=== PATIENT | male | born 1995 | race African-American/Black ===

== ENCOUNTER 2020-09-06 05:07 | Emergency (ER) | payer SELFPAY ==
[~2020-09-06] VITALS: Ht 172.7 cm; Wt 85.7 kg
[2020-09-06] MEDS ORDERED: CEFTRIAXONE SOD 1 GM VIAL IM ONE (05:30)
[2020-09-06] MEDS ORDERED: CEFTRIAXONE SOD 1 GM VIAL ONE (05:37)
[2020-09-06 05:53] VITALS: BP 125/59
== END 2020-09-06 05:53 | disposition home or self-care (01) ==
LOC: FSED 05:27
DX: L03.317 Cellulitis of buttock (principal); F17.210 Nicotine dependence, cigarettes, uncomplicated
CPT/HCPCS: 96372; 99282; J0696